=== PATIENT | male | born 1960 | race Caucasian/White ===

== ENCOUNTER 2017-01-12 15:28 | Emergency (ER) | payer SELFPAY ==
--- NOTE | 2017-01-12 16:33 | ED Physician Documentation ---
Head Injury - HISTORIAN Historian: patient - HPI Stated Complaint: Scalp Laceration Chief Complaint: Near Syncope Onset: today Where: home Timing: better Context: fall, direct blow (door jam) Severity: mild Loss of Consciousness: no loss of consciousness Further Comments: yes (Patient states that he got up and become lighheaded, fell against the door jam and sustained a lceration. Last tetanus 5 years ago. ) - ROS CONST: no problems - PAST HX Past History: other (depression) Allergies/Adverse Reactions: Allergies Allergy/AdvReac Type Severity Reaction Status Date / Time Penicillins Allergy Verified 01/12/17 15:42 Home Medications: Ambulatory Orders Medication Instructions Recorded Diazepam [Valium] 10 mg PO TID 01/12/17 Gabapentin [Gabapentin] 800 mg PO 5XDAY 01/12/17 Oxycodone HCl [Roxicodone] 20 mg PO QID 01/12/17 Sertraline HCl [Zoloft] 100 mg PO DAILY 01/12/17 Terazosin HCl [Hytrin] 10 mg PO BID 01/12/17 - SOCIAL HX Smoking History: greater than 1 pack/day Alcohol Use: none Drug Use: none - FAMILY HX Family History: no significant history - VITAL SIGNS Vital Signs: Vital Signs Temp Pulse Resp BP Pulse Ox 98.1 F 73 16 97/60 84 L 01/12/17 15:30 01/12/17 18:13 01/12/17 18:13 01/12/17 18:13 01/12/17 18:13 - REVIEWED ASSESSMENTS Nursing Assessment Reviewed: Yes Vitals Reviewed: Yes Procedures Wound Location: head (right frontal occipital scalp area.) Wound's Depth, Shape: flap, other (to periosteum) Wound Explored: clean Irrigated w/ Saline (ccs): 120 Betadine Prep?: No (hexadine) Anesthesia: 1% Lidocaine Volume of Anesthetic: 5ml Wound Debrided: none Wound Repaired With: sutures (14) Suture Size/Type: 4:0, nylon Number of Sutures: 14 Layer Closure?: No Sterile Dressing Applied?: No Splint Applied?: No ED Results Lab/Radiology - Orders Orders: ED Orders Category Date Time Status Lidocaine 1% 5ml(IM or SUTURE) [Xylocaine] Med 01/12/17 16:48 Discontinued 50 mg IJ NOW ONE Head Injury Physical Exam - Physical Exam General Appearance: no acute distress, alert Head: no swelling, trauma. No: raccoon eyes, Ponce's sign Neck: non-tender, painless ROM, trachea midline Nexus Criteria: Nexus criteria neg Eyes: KAREY, EOMI. No: visual field deficit ENT: nml external inspection, pharynx nml Neuro: alert, oriented x3, cooperative, interactive, mood/affect nml Cranial: nml as tested, no evidence of acute CVA Cerebellar: nml as tested Sensorimotor: motor nml, sensation nml Resp/CVS: chest non-tender, breath sounds nml, heart sounds nml, no resp. distress, lungs clear. No: wheezes, rales, rhonchi Abdomen: non-tender, no organomegaly Back: non-tender, painless ROM Skin: warm/dry, normal color Extremities: atraumatic, nml ROM, gait nml - Anni Coma Score Coma Scale Eye Opening: Spontaneous Coma Scale Verbal: Oriented Coma Scale Motor: Obeys Commands Discharge Clincal Impression: Open head wound Additional Instructions: Keep head wound clean, watch for any signs of infection. Have sutures removed in 7-10 days. Follow head instruction sheet. Return to the ED if you have any further problems. Home Medications: Ambulatory Orders Diazepam [Valium] 10 mg PO TID 01/12/17 Gabapentin [Gabapentin] 800 mg PO 5XDAY 01/12/17 Oxycodone HCl [Roxicodone] 20 mg PO QID 01/12/17 Sertraline HCl [Zoloft] 100 mg PO DAILY 01/12/17 Terazosin HCl [Hytrin] 10 mg PO BID 01/12/17 Condition: Stable Disposition: 01 HOME, SELF-CARE Decision to Admit: NO Date of Decison to Admit: 01/12/17 (n) Decision Time: 17:39
[2017-01-12] MEDS ORDERED: Lidocaine 1% 5ml(IM or SUTURE)(PAIN CLINIC) IJ ONE (16:48)
[2017-01-12 18:18] VITALS: BP 97/60
== END 2017-01-12 17:50 | disposition home or self-care (01) ==
LOC: ED 15:28
DX: S01.91XA Laceration without foreign body of unspecified part of head, initial encounter (principal); W19.XXXA Unspecified fall, initial encounter; Y93.9 Activity, unspecified; Y99.9 Unspecified external cause status
CPT/HCPCS: 12013; 99284